=== PATIENT | female | born 1965 | race Caucasian/White ===

== ENCOUNTER → 2018-03-03 | Outpatient (CLI) | payer BC ==
[~2018-03-03] MED LIST: CELLCEPT 5500 MG/TAB PO; CELLCEPT500 M1 PO; PRILOSEC 20MG20 MG PO; PROCARDIA XL 3030 MG PO; UCERIS PO; domperidone PO
== END ==
LOC: COL.RAD 03-01 09:45
DX: K75.4 Autoimmune hepatitis (principal); K31.84 Gastroparesis; K21.0 Gastro-esophageal reflux disease with esophagitis; Z90.49 Acquired absence of other specified parts of digestive tract

== ENCOUNTER → 2022-04-12 | Outpatient (CLI) | payer BC ==
[~2022-04-12] MED LIST changes: +GLUMETZA500 MG PO; +LIPITOR 10MG10 MG PO; +MULTI VITAMINS1 TAB PO; +PROBIOTIC ACID1 EAC3 PO; +THERA-D 20002000 IU PO
== END ==
LOC: COL.RAD 08:36
DX: K75.4 Autoimmune hepatitis (principal); K76.0 Fatty (change of) liver, not elsewhere classified; K21.9 Gastro-esophageal reflux disease without esophagitis; K31.84 Gastroparesis

== ENCOUNTER → 2022-11-29 | Outpatient (CLI) | payer BC | LOC: COL.RAD 11:55 | DX: K75.4 Autoimmune hepatitis (principal); K75.81 Nonalcoholic steatohepatitis (NASH); R74.8 Abnormal levels of other serum enzymes; R16.0 Hepatomegaly, not elsewhere classified; D84.9 Immunodeficiency, unspecified; Z00.00 Encounter for general adult medical examination without abnormal findings ==